=== PATIENT | male | born 1940 | race Caucasian/White ===

== ENCOUNTER 2017-07-23 14:37 | Emergency (ER) | payer MEDICARE ==
--- NOTE | 2017-07-23 15:55 | RAD ---
INDICATION: LEFT calf edema and pain. COMPARISON: No relevant prior exams available on the [facility] for comparison. TECHNIQUE: Harper scale, color Doppler, and spectral analysis of the deep veins of the LEFT lower extremity. Vessel compression, phasicity, and augmentation assessed. REPORT: The LEFT common femoral, great saphenous, profunda femoral, femoral, popliteal, peroneal, and posterior tibial veins are patent. Significant subcutaneous edema noted at the calf. No loculated fluid collection visualized. Patency of the RIGHT common femoral vein documented. IMPRESSION: No evidence for LEFT lower extremity deep venous thrombosis.
[2017-07-23 16:57] LABS: ABS Basophils 0 10^3/ul (0-0.2); ABS Eosinophils 0 10^3/ul (0-0.6); ABS Monocytes 0.4 10^3/ul (0-0.8); ABS Neutrophils 4.3 10^3/ul (1.5-7.7); ABS Nucleated RBC 0 10^3/ul; Eosinophil % 0.7 % (0-6); Hematocrit 45 % (42-52); Hemoglobin 15.2 g/dl (14.0-18.0); Lymphocyte % 17.3 % (25-47); Mean Corpuscular HGB Conc 34 g/dl (31-36); Mean Corpuscular Hemoglobin 32 pg (27-31); Mean Corpuscular Volume 95 fL (80-94); Mean Platelet Volume 8 um3 (7.4-10.4); Nucleated Red Blood Cells % 0; Platelet Count 175 10^3/ul (150-450); Red Blood Count 4.75 10^6/ul (4.0-5.4); Red Cell Distribution Width 15 % (10.5-15); White Blood Count 5.8 10^3/ul (3.5-10.8)
[2017-07-23 17:11] LABS: EGFR Non-African American 63.9 (>60)
[2017-07-23 17:24] VITALS: BP 130/64
--- NOTE | 2017-08-13 20:15 | ED ---
Annei Law Edward, scribed for Shashi Garrido MD on 07/23/17 at 1507 . Lower Extremity - HPI Summary HPI Summary: 76 y/o male presents to the ED c/o L lower leg swelling for a couple of weeks, still present. Pt was sent to the ED by his PCP for concerns of blood clots. Swelling becomes more pronounced at the espinal when the pt puts socks on. Denies injury, denies pain at the L leg. R leg normal. Denies fever, chils. No PMHx blood clots. Sx prostate removal. PMHx prostate CA. - History of Current Complaint Chief Complaint: EDExtremityLower Stated Complaint: SWELLING IN LT LEG Hx Obtained From: Patient Onset/Duration: Weeks Severity Currently: None Pain Intensity: 0 Timing: Constant Associated Signs And Symptoms: Positive: Swelling Aggravating Factor(s): Nothing Alleviating Factor(s): Nothing - Allergies/Home Medications Allergies/Adverse Reactions: Allergies Allergy/AdvReac Type Severity Reaction Status Date / Time No Known Allergies Allergy Verified 09/24/15 11:49 PMH/Surg Hx/FS Hx/Imm Hx Previously Healthy: No Endocrine/Hematology History: Denies: Hx Diabetes Cardiovascular History: Reports: Hx Hypercholesterolemia History: Reports: Other Problems/Disorders - hemorrhoids Infectious Disease History: No Infectious Disease History: Denies: Traveled Outside the [place] in Last 30 Days - Family History Known Family History: Positive: Hypertension, Other - CVA, lung cancer - Social History Alcohol Use: Occasionally Hx Substance Use: No Substance Use Type: Reports: None Hx Tobacco Use: No Smoking Status (MU): Never Smoked Tobacco Review of Systems Constitutional: Negative Eyes: Negative ENT: Negative Cardiovascular: Negative Respiratory: Negative Gastrointestinal: Negative Genitourinary: Negative Positive: Edema - L lower leg Skin: Negative Neurological: Negative Psychological: Normal All Other Systems Reviewed And Are Negative: Yes Physical Exam - Summary Physical Exam Summary: Appearance: Well-appearing, Well-nourished Skin: Warm, Dry, No rash Eyes: Normal, PERRL, EOMI, sclera anicteric ENT: Normal Neck: Supple, nontender Respiratory: Clear to auscultation Cardiovascular: S1, S2, no murmur, no rub, no gallop. Regularly irregular rhythm. Abdomen: Soft, nontender, no organomegaly Bowel sounds: Present Musculoskeletal: Normal, Strength/ROM Intact, pulses symmetrical. Swelling from knee on down on L side. No pain, no signs of cellulitis, no erythema. Good pulses Neurological: Normal, A&Ox3, cranial nerves II-XII WNL, follows commands, gait not tested, sensation intact to pin and light touch Psychiatric: affect normal, behavior appropriate, dressed appropriately, judgment intact Triage Information Reviewed: Yes Vital Signs On Initial Exam: Initial Vitals Temp Pulse Resp BP Pulse Ox 97.1 F 64 18 155/84 99 07/23/17 14:54 07/23/17 14:54 07/23/17 14:54 07/23/17 14:54 07/23/17 14:54 Vital Signs Reviewed: Yes Diagnostics - Vital Signs Vital Signs Temp Pulse Resp BP Pulse Ox 07/23/17 14:54 97.1 F 64 18 155/84 99 - Laboratory Result Diagrams: 07/23/17 16:45 07/23/17 16:45 Lab Statement: Any lab studies that have been ordered have been reviewed, and results considered in the medical decision making process. - Ultrasound No standard instances Ultrasound Interpretation: No Acute Changes - LESTER DOPPLER LLE - No evidence for LEFT lower extremity deep venous thrombosis. Ultrasound Interpretation Completed By: Radiologist - ED PHYSICIAN REVIEWS AND AGREES - EKG 1 EKG Interpretation: 15:45 - VENTRICULAR BIGEMINY @ 62 BPM. Lower Extremity Course/Dx - Course Assessment/Plan: LESTER DOPPLER LLE - No evidence for LEFT lower extremity deep venous thrombosis. EKG - 15:45 - VENTRICULAR BIGEMINY @ 62 BPM. Possible interruption of lymphatics secondary to prostate surgery. Labs normal. Pt will be d/c home. 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
== END 2017-07-23 17:47 | disposition home or self-care (01) ==
LOC: ED 14:37
DX: I89.0 Lymphedema, not elsewhere classified (principal); R60.0 Localized edema; Z85.46 Personal history of malignant neoplasm of prostate
CPT/HCPCS: 36415; 80053; 84153; 85025; 93005; 99282

== ENCOUNTER 2018-03-09 16:32 | Inpatient (IN) | payer MEDICARE, BC ==
[2018-03-09 17:31] LABS: ABS Basophils 0 10^3/ul (0-0.2); ABS Eosinophils 0 10^3/ul (0-0.6); ABS Lymphocytes 0.6 10^3/ul (1.0-4.8); ABS Monocytes 1.5 10^3/ul (0-0.8); ABS Neutrophils 8.8 10^3/ul (1.5-7.7); ABS Nucleated RBC 0 10^3/ul; Eosinophil % 0.1 % (0-6); Hematocrit 42 % (42-52); Hemoglobin 14.3 g/dl (14.0-18.0); Lymphocyte % 5.5 % (25-47); Mean Corpuscular HGB Conc 34 g/dl (31-36); Mean Corpuscular Hemoglobin 32 pg (27-31); Mean Corpuscular Volume 94 fL (80-94); Mean Platelet Volume 9.1 um3 (7.4-10.4); Nucleated Red Blood Cells % 0; Platelet Count 127 10^3/ul (150-450); Red Blood Count 4.48 10^6/ul (4.00-5.40); Red Cell Distribution Width 15 % (10.5-15)
[2018-03-09 17:49] LABS: EGFR Non-African American 61.8 (>60)
--- NOTE | 2018-03-09 18:08 | ED ---
HPI Chest Pain - HPI Summary HPI Summary: [facility]. Pt is a 77 y/o M c/o chest pain located on the R side onset 1 day ago. Per shank pinner, pain is rated a 5/10 at its worst and described as "chest wall" pain. Assoc Sx: Productive cough, Thick/green sputum, CP, chills, fever (100.2) Denies: N/V, SOB, Abd/back pain, POTTER. Pt was Dx with laryngitis ~1 week prior to todays visit. Pt's daughter notes that she just started noticing hand tremors 1 day ago. - History of Current Complaint Chief Complaint: EDChestWallPain Time Seen by Provider: 03/09/18 17:55 Hx Obtained From: Patient Onset/Duration: Started Days Ago, Atraumatic, Still Present Timing: Constant Initial Severity: Moderate Current Severity: Mild Pain Intensity: 3 Pain Scale Used: 0-10 Numeric Chest Pain Location: Upper Sternal - R-sided Chest Pain Radiates: No Character: Pressure/Squeezing Aggravating Factor(s): Nothing Alleviating Factor(s): Nothing Associated Signs and Symptoms: Positive: Chest Pain, Fever - 100.2, Chills, Productive Cough - thick/gree, Other: - Pos: Neg: back pain. Negative: Headaches, Shortness of Breath, Nausea, Abdominal Pain, Vomiting - Allergy/Home Medications Allergies/Adverse Reactions: Allergies Allergy/AdvReac Type Severity Reaction Status Date / Time No Known Allergies Allergy Verified 02/19/18 12:18 Home Medications: Home Medications NK [No Home Medications Reported] 03/09/18 [History Confirmed 03/09/18] PMH/Surg Hx/FS Hx/Imm Hx Endocrine/Hematology History: Denies: Hx Diabetes Cardiovascular History: Reports: Hx Hypercholesterolemia Denies: Hx Hypertension, Hx Pacemaker/ICD History: Reports: Other Problems/Disorders - hemorrhoids Denies: Hx Renal Disease Sensory History: Denies: Hx Hearing Aid Psychiatric History: Denies: Hx Panic Disorder - Cancer History Cancer Type, Location and Year: PROSTATE - Surgical History Surgery Procedure, Year, and Place: PROSTATECTOMY Infectious Disease History: No Infectious Disease History: Denies: Traveled Outside the [place] in Last 30 Days - Family History Known Family History: Positive: Hypertension, Other - CVA, lung cancer - Social History Lives: With Family Alcohol Use: Occasionally Hx Substance Use: No Substance Use Type: Reports: None Hx Tobacco Use: No Smoking Status (MU): Never Smoked Tobacco Review of Systems Positive: Fever - 100.2, Chills Positive: Chest Pain - R-sided Positive: Cough - productive. Negative: Shortness Of Breath Negative: Abdominal Pain, Vomiting, Nausea All Other Systems Reviewed And Are Negative: Yes Physical Exam - Summary Physical Exam Summary: VITAL SIGNS: Reviewed. GENERAL: Patient is a well-developed and nourished male who is lying comfortable in the stretcher. Patient is not in any acute respiratory distress. HEAD AND FACE: No signs of trauma. No ecchymosis, hematomas or skull depressions. No sinus tenderness. EYES: PERRLA, EOMI x 2, No injected conjunctiva, no nystagmus. EARS: Hearing grossly intact. Ear canals and tympanic membranes are within normal limits. MOUTH: Oropharynx within normal limits. NECK: Supple, trachea is midline, no adenopathy, no JVD, no carotid bruit, no c- spine tenderness, neck with full ROM. CHEST: Symmetric, no tenderness at palpation LUNGS: Clear to auscultation bilaterally. No wheezing. Crackles (+). CVS: Regular rate and rhythm, S1 and S2 present, no murmurs or gallops appreciated. ABDOMEN: Soft, non-tender. No signs of distention. No rebound no guarding, and no masses palpated. Bowel sounds are normal. EXTREMITIES: FROM in all major joints, no edema, no cyanosis or clubbing. NEURO: Alert and oriented x 3. No acute neurological deficits. Speech is normal and follows commands. SKIN: Dry and warm. Pt feels warm. Triage Information Reviewed: Yes Vital Signs On Initial Exam: Initial Vitals Temp Pulse Resp BP Pulse Ox 99.8 F 81 16 134/58 100 03/09/18 16:33 03/09/18 16:33 03/09/18 16:33 03/09/18 16:33 03/09/18 16:33 Vital Signs Reviewed: Yes Diagnostics - Vital Signs Vital Signs Temp Pulse Resp BP Pulse Ox 03/09/18 18:05 100.2 F 03/09/18 17:54 98.9 F 74 16 125/54 100 03/09/18 16:33 99.8 F 81 16 134/58 100 - Laboratory Lab Results: Lab Results 03/09/18 03/09/18 03/09/18 Range/Units 17:15 17:16 17:16 WBC 11.0 H (3.5-10.8) 10^3/ul RBC 4.48 (4.00-5.40) 10^6/ul Hgb 14.3 (14.0-18.0) g/dl Hct 42 (42-52) % MCV 94 (80-94) fL MCH 32 H (27-31) pg MCHC 34 (31-36) g/dl RDW 15 (10.5-15) % Plt Count 127 L (150-450) 10^3/ul MPV 9.1 (7.4-10.4) um3 Neut % (Auto) 80.4 (38-83) % Lymph % (Auto) 5.5 L (25-47) % [place] % (Auto) 13.8 H (0-7) % Eos % (Auto) 0.1 (0-6) % Baso % (Auto) 0.2 (0-2) % Absolute Neuts (auto) 8.8 H (1.5-7.7) 10^3/ul Absolute Lymphs (auto) 0.6 L (1.0-4.8) 10^3/ul Absolute Monos (auto) 1.5 H (0-0.8) 10^3/ul Absolute Eos (auto) 0 (0-0.6) 10^3/ul Absolute Basos (auto) 0 (0-0.2) 10^3/ul Absolute Nucleated RBC 0 10^3/ul Nucleated RBC % 0 Sodium 133 L (135-145) mmol/L Potassium 4.1 (3.5-5.0) mmol/L Chloride 99 L (101-111) mmol/L Carbon Dioxide 27 (22-32) mmol/L Anion Gap 7 (2-11) mmol/L BUN 17 (6-24) mg/dL Creatinine 1.15 (0.67-1.17) mg/dL Est GFR ( Amer) 74.8 (>60) Est GFR (Non-Af Amer) 61.8 (>60) BUN/Creatinine Ratio 14.8 (8-20) Glucose 112 H (70-100) mg/dL Lactic Acid 1.1 (0.5-2.0) mmol/L Calcium 9.3 (8.6-10.3) mg/dL Total Bilirubin 3.20 H (0.2-1.0) mg/dL AST 19 (13-39) U/L ALT 14 (7-52) U/L Alkaline Phosphatase 57 (34-104) U/L Troponin I 0.13 H* (<0.04) ng/mL Total Protein 6.9 (6.4-8.9) g/dL Albumin 4.0 (3.2-5.2) g/dL Globulin 2.9 (2-4) g/dL Albumin/Globulin Ratio 1.4 (1-3) Result Diagrams: 03/09/18 17:16 03/09/18 17:16 Lab Statement: Any lab studies that have been ordered have been reviewed, and results considered in the medical decision making process. - Radiology CXR Xray Interpretation: Positive (See Comments) - IMPRESSION: POSSIBLE INFILTRATE OVERLYING THE LATERAL ASPECT OF THE RIGHT MIDDLE LOBE. A FOLLOW-UP CHEST X-RAY AFTER AN APPROPRIATE COURSE OF THERAPY IS ADVISED TO ASCERTAIN RESOLUTION. Radiology Interpretation Completed By: Radiologist - Provider has reviewed report. - EKG 1637 Cardiac Rate: NL - 77 bpm EKG Interpretation: ST depressions in 2,3 Chest Pain Course/Dx - Course Assessment/Plan: Pt is a 77 y/o M c/o chest pain located on the R side onset 1 day ago. Per shank pinner, pain is rated a 5/10 at its worst and described as "chest wall" pain. Assoc Sx: Productive cough, Thick/green sputum, CP, chills, fever (100.2) Denies: N/V, SOB, Abd/back pain, POTTER. Pt was Dx with laryngitis ~1 week prior to today's visit. Pt's daughter notes that she just started noticing hand tremors 1 day ago. Blood test results without any significant abnormality except for what was a count of 11, platelet count of 127, sodium 133, chloride 99, glucose 112, troponin of 0.13. Impression: Possible infiltratable in the lateral aspect of the right middle of follow-up chest x-ray after appropriate course of therapy. The patient was given aspirin, and metoprolol for the increased troponin. I held the beta russel since the patient is a is not having any chest pain. The patient also was given Levaquin by the hospitalist for pneumonia. At this point I discussed my physical exam, findings and test results with Dr. Carmelo Kirkpatrick the patient for admission. The patients hemogram medically stable alert and oriented 3. - Chest Pain Differential Diagnosis/HQI/PQRI: Acute GA, ACS, Angina, CHF, Chest Wall, GI Disease, Lower Respiratory Infection - Diagnoses Provider Diagnoses: Pneumonia, Elevated troponin - Critical Care Time Critical Care Time: 30-74 min Discharge - Sign-Out/Discharge Documenting (check all that apply): Patient Departure - Discharge Plan Condition: Stable Disposition: ADMITTED TO [facility] - Billing Disposition and Condition Condition: STABLE Disposition: Admitted to [facility]
[2018-03-09] MEDS ORDERED: Metoprolol Tartrate TAB* 25 MG PO ONE (18:25)
[2018-03-09] MEDS ORDERED: Aspirin 81 mg CHEW TAB* 81 MG TAB.CHEW PO ONE (18:25)
--- NOTE | 2018-03-09 19:16 | RAD ---
INDICATION: Shortness of breath. COMPARISON: Chest x-ray dated November 16, 2004 TECHNIQUE: PA and lateral views of the chest were obtained. FINDINGS: The heart and mediastinum are normal in size and contour. Overlying the lateral mid-level right lung there is patchy density that was not seen on the previous chest x-ray. Elsewhere the lungs are adequately clear. Visualized bones are normal for the patient's age. There is no radiographic evidence of free air beneath the diaphragm IMPRESSION: POSSIBLE INFILTRATE OVERLYING THE LATERAL ASPECT OF THE RIGHT MIDDLE LOBE. A FOLLOW-UP CHEST X-RAY AFTER AN APPROPRIATE COURSE OF THERAPY IS ADVISED TO ASCERTAIN RESOLUTION.
[2018-03-09] MEDS ORDERED: Docusate CAP* 100 MG PO PRN (19:55)
[2018-03-09] MEDS ORDERED: Al Hydrox/Mg Hydrox/Simet LIQ* 30 ML UDC PO PRN (19:55)
[2018-03-09] MEDS ORDERED: Ondansetron INJ* 2 MG/ML VIAL IV PRN (19:55)
[2018-03-09] MEDS ORDERED: Acetaminophen TAB* 325 MG PO PRN (19:55)
[2018-03-09] MEDS ORDERED: Senna TAB PO PRN (19:55)
[2018-03-09] MEDS ORDERED: Albuterol 2.5 MG/3 ML NEB.SOL* (0.083%) INH PRN (19:55)
[2018-03-09] MEDS ORDERED: Levofloxacin 750 MG IVPREMIX(* 750 MG/150 ML BAG IVPB ONE (20:00)
[2018-03-09] MEDS: Heparin VIAL(*) 5000 UNITS/ML VIAL (FIVE THOUSAND) SUBCUT SCH (22:56)
[2018-03-09] MEDS: NS 0.9% 1000 ML* 1,000 ML IV SCH (22:58)
--- NOTE | 2018-03-09 23:07 | HP ---
CC: [facility]. * HISTORY AND PHYSICAL: DATE OF ADMISSION: 03/09/18. TIME OF EVALUATION: 1999 CHIEF COMPLAINT: Chest pain. HISTORY OF PRESENT ILLNESS: This is a 77-year-old male with a past medical history of prostate cancer, who presented to the emergency room with chest pain. The patient states about a week ago, he developed laryngitis where he lost his voice and then he developed significant congestion, productive cough. Three to four days ago, he developed right-sided pain and substernal chest pressure worse with palpation and deep breath. There was concern about swelling in his legs. He called [facility] where he gets followed there for his prostate cancer. They were concerned about DVT and recommended he get a Doppler of his lower extremities, which he did earlier today that was negative and because of the ongoing chest pain they recommended going to the emergency room for further evaluation. The patient denies any nausea, vomiting, diarrhea. No abdominal pain. No urinary symptoms. His appetite has been okay. No fevers. He has had chills today. He states his chest pain, pleuritic pain have improved. He is currently pain free. He last went to see his primary back in July, but saw the midlevel who has since gone at [facility]. States he has had pneumonia in the past that responded well to Levaquin. Otherwise review of systems negative. In the emergency room, the patient had labs, imaging. The patient was given 324 mg of aspirin, metoprolol 25 mg and referred to the hospitalist service for further evaluation. PAST MEDICAL HISTORY: History of prostate cancer, status post TURP, followed at [facility]. MEDICATIONS: None. ALLERGIES: No known drug allergies. FAMILY HISTORY: Mother at age 85 of lung cancer, father at age of 72 from cancer. SOCIAL HISTORY: The patient lives at home with his , who is his healthcare proxy. His daughter, Sruthi, is a secondary proxy. He is independent of his ADLs. Per daughter, he is very active. No history of smoking. Occasional alcohol use. No illicit drug use. Code status is full code. REVIEW OF SYSTEMS: A 14-point review of systems as mentioned in the HPI. Otherwise, negative. PHYSICAL EXAMINATION GENERAL: In no acute distress, resting comfortably with his daughter at the bedside. VITAL SIGNS: T-max 100.2, pulse rate 90, respiratory rate 16, oxygen saturation 98% on room air, and blood pressure 139/62. HEENT: Head: Normocephalic. Pupils are equal and reactive. Oropharynx: Some mild erythema in the posterior oropharynx. No exudate. NECK: Supple. No lymphadenopathy. No nuchal rigidity. RESPIRATORY: Diminished breath sounds. Rhonchi present at the right middle lobe. No increased work of breathing. No tachypnea. CARDIAC: Regular rate and rhythm. Soft systolic murmur heard throughout. ABDOMEN: Soft, nontender, nondistended. EXTREMITIES: Trace pretibial edema. NEUROLOGIC: Alert and oriented x3. No gross focal neurological deficits. LABORATORY DATA: White count 11, hemoglobin 14.3, hematocrit 42, platelets 127. Sodium 133, potassium 4.1, chloride 99, bicarbonate 27, BUN 17, creatinine 1.14, glucose 112. Total bilirubin 3.12, troponin 0.13. Radiographic data: Chest x-ray shows possible infiltrate overlying the lateral aspect of the right middle lobe. EKG shows sinus rhythm. There is no significant ST changes. ASSESSMENT: This is a 77-year-old male with an unremarkable past medical history who presents to the emergency room with pleuritic pain, chest pain, found to have an elevated troponin. 1. Chest pain. Assessment: I suspect the patient's presentation is secondary to community acquired pneumonia and resulting in demand ischemia with a bump in his troponin. With EKGs unremarkable, he is chest pain-free at this time. He has no respiratory compromise at this time either. Plan: We will follow up on blood cultures, obtain a sputum culture. We will start him on Levaquin and IV fluids. Continue him on a baby aspirin. We will do a trial of albuterol nebulizer. Continue to trend his troponin. We obtained an echocardiogram in the morning. I discussed that this is less likely an NSTEMI and more likely stress from his infection, but that he should get a stress test at some point either while he is an inpatient or as an outpatient. 2. FEN. We will place the patient on heart healthy diet. 3. DVT prophylaxis: The patient scores moderate risk. We will place him on heparin subcutaneous t.i.d. 4. Code status: Full code. PATIENT TIME: Greater than 45 minutes was spent doing the history and physical , more than half the time was spent in direct patient contact and critical care time. [id number]/[facility] #: [id number] EDGARDO
[2018-03-10] MEDS: Heparin VIAL(*) 5000 UNITS/ML VIAL (FIVE THOUSAND) SUBCUT SCH ×2 (04:59→15:52)
[2018-03-10 07:15] LABS: ABS Basophils 0 10^3/ul (0-0.2); ABS Eosinophils 0 10^3/ul (0-0.6); ABS Lymphocytes 0.7 10^3/ul (1.0-4.8); ABS Monocytes 1.5 10^3/ul (0-0.8); ABS Neutrophils 6.8 10^3/ul (1.5-7.7); ABS Nucleated RBC 0 10^3/ul; Eosinophil % 0.1 % (0-6); Hematocrit 35 % (42-52); Lymphocyte % 7.7 % (25-47); Mean Corpuscular HGB Conc 34 g/dl (31-36); Mean Corpuscular Hemoglobin 32 pg (27-31); Mean Corpuscular Volume 93 fL (80-94); Mean Platelet Volume 9.4 um3 (7.4-10.4); Nucleated Red Blood Cells % 0; Platelet Count 111 10^3/ul (150-450); Red Blood Count 3.77 10^6/ul (4.00-5.40); Red Cell Distribution Width 15 % (10.5-15)
[2018-03-10 07:59] LABS: EGFR Non-African American 63.1 (>60)
[2018-03-10] MEDS: NS 0.9% 1000 ML* 1,000 ML IV SCH (08:39)
[2018-03-10] MEDS: Aspirin 81 mg CHEW TAB* 81 MG TAB.CHEW PO SCH (08:44)
--- NOTE | 2018-03-10 10:01 | ECHO ---
Patient: ISAURA SORIA [facility] Rec#: [id number] : 1940 Date: 03/10/2018 Age: 77y Height: 180 cm / 70.9 in Weight: 68 kg / 149.9 lbs Sex: M BSA: 1.86 Room#: [facility] Admit Date#: 03/09/2018 Type: Inpatient Referring: Olga Lidia Reilly Reading: Estiven Marr DO Advisor [facility] [employer] Founder: Ketty Ziegler,RDCS,RDMS Transthoracic Echocardiogram Indication: CP, ABN EKG BP: 125/53 HR: 73 Rhythm: NSR Findings History: HLD, murmur Technical Comments: The study quality is good. Left Ventricle: The left ventricular chamber size is normal. There is no left ventricular hypertrophy. There is normal left ventricular systolic function. The estimated ejection fraction is 60-65%. There is septal flattening of the interventricular septum consistent with right ventricular volume or pressure overload. There is no consistent Doppler evidence of clinically significant diastolic dysfunction. Left Atrium: The left atrial chamber size is normal. Right Ventricle: The right ventricle is mildly dilated. The right ventricular global systolic function is mildly reduced. Right Atrium: The right atrial cavity size is normal. Aortic Valve: The aortic valve is trileaflet. The aortic valve leaflets are mildly thickened. There is aortic annular calcification. There is no evidence of aortic regurgitation. There is no evidence of aortic stenosis. Mitral Valve: The mitral valve leaflets are mildly thickened. There is a trace of mitral regurgitation. There is no evidence of mitral stenosis. Tricuspid Valve: The tricuspid valve leaflets are normal. There is mild tricuspid regurgitation. There is evidence of mild pulmonary hypertension. Pulmonic Valve: The pulmonic valve appears normal. There is a trace pulmonic regurgitation. Pericardium: There is no significant pericardial effusion. Aorta: The aortic root appears normal. The aortic arch is not well visualized. Pulmonary Artery: The main pulmonary artery is not well visualized. Venous: The inferior vena cava is dilated. There is less than 50% respiratory change in the inferior vena cava dimension. Conclusions The left ventricular chamber size is normal. There is no left ventricular hypertrophy. There is normal left ventricular systolic function. The estimated ejection fraction is 60-65%. There is very minimal septal flattening/"bounce" of the interventricular septum mostly likely as a result of right ventricular volume and/or pressure overload. The left atrial chamber size is normal. The right ventricle is mildly dilated. The right ventricular global systolic function is mildly reduced. There is mild tricuspid regurgitation. There is evidence of mild pulmonary hypertension. None prior for comparison at time of interpretation. Measurements Name Value Normal Range RVIDd (AP) 2D 2.5 cm (0.9 - 2.6) RVDdMajor (2D) 2.7 cm (2.2 - 4.4) RAd ISD 4CH 4.5 cm (3.4 - 4.9) RA (A4C)W 4.6 cm (2.9 - 4.6) IVSd (2D) 1 cm (0.6 - 1) LVPWd (2D) 1 cm (0.6 - 1) LVIDd (2D) 5.1 cm (3.6 - 5.4) LVIDs (2D) 3 cm - LV FS (2D) 42 % (25 - 45) Aortic Annulus 2.1 cm (1.4 - 2.6) Ao root diameter (2D) 3 cm (2.1 - 3.5) Ascending Ao 2.9 cm (2.1 - 3.4) LA dimension (AP) 2D 3.8 cm (2.3 - 3.8) LAd ISD 4CH 4.8 cm (2.9 - 5.3) LA ISD 4CH W 3.8 cm (2.5 - 4.5) Name Value Normal Range MV E-wave Vmax 0.9 m/sec - MV deceleration time 213 msec - MV A-wave Vmax 1.2 m/sec - MV E:A ratio 0.8 ratio - LV septal e' Vmax 0.08 m/sec - LV lateral e' Vmax 0.08 m/sec - LV E:e' septal ratio 11 ratio - LV E:e' lateral ratio 11 ratio - Name Value Normal Range AV Vmax 1.3 m/sec - AV VTI 27 cm - AV peak gradient 7 mmHg - AV mean gradient 4 mmHg - LVOT diameter 2 cm - LVOT Vmax 1 m/sec - LVOT VTI 21 cm - LVOT peak gradient 4 mmHg - LVOT mean gradient 2 mmHg - LORETA (continuity Vmax) 2.5 cm2 - LORETA (continuity VTI) 2.4 cm2 - MATT Vmax 0.9 m/sec - Name Value Normal Range MV Vmax 1.1 m/sec - MV VTI 35 cm - MV peak gradient 5 mmHg - MV mean gradient 2 mmHg - MV PHT 80 msec - MVA (PHT) 2.8 cm2 - MVA (continuity VTI) 1.9 cm2 - Name Value Normal Range TR Vmax 3.1 m/sec - TR peak gradient 38 mmHg - RAP 3 mmHg - RVSP 41 mmHg - IVC diameter 2.3 cm - Name Value Normal Range PV Vmax 0.8 m/sec - PV peak gradient 2.6 mmHg -
[2018-03-10] MEDS: cefTRIAXone(*) 1 GM in NS 0.9% 50 ML* 50 ML IVPB SCH (16:30)
[2018-03-10] MEDS: DOXYcycline IV* 100 MG in NS 0.9% 250 ML* 250 ML IVPB SCH (17:19)
[2018-03-10] MEDS ORDERED: Levofloxacin 750 MG IVPREMIX(* 750 MG/150 ML BAG IVPB SCH (20:00)
--- NOTE | 2018-03-10 20:06 | PN ---
Subjective Date of Service: 03/10/18 Interval History: Patient feeling much improved. Decreased SOB with no hypoxia and ability to ambulate around unit multiple times. Denies CP, SOB, N/V, abdominal pain, diarrhea, dysuria, F/C, dizziness, or other pain. Had numerous questions and concerns which were answered to his satisfaction. Family History: Unchanged from Admission Social History: Unchanged from Admission Past Medical History: Unchanged from Admission Objective Active Medications: Acetaminophen (Tylenol Tab*) 650 mg PO Q4H PRN PRN Reason: FEVER/PAIN Al Hydrox/Mg Hydrox/Simethicone (Maalox Plus*) 30 ml PO Q6H PRN PRN Reason: INDIGESTION Albuterol (Ventolin 2.5 Mg/3 Ml Neb.Vy*) 2.5 mg INH [id number] AWAKE PRN PRN Reason: sob/wheezing Aspirin (Aspirin 81 Mg Chew Tab*) 81 mg PO DAILY [facility] Last Admin: 03/10/18 08:44 Dose: 81 mg Docusate Sodium (Colace Cap*) 100 mg PO BID PRN PRN Reason: CONSTIPATION Doxycycline Hyclate 100 mg/ (Sodium Chloride) 250 mls @ 250 mls/hr IVPB Q12H [facility] Last Admin: 03/10/18 17:19 Dose: 250 mls/hr Ceftriaxone Sodium 1 gm/ (Sodium Chloride) 50 mls @ 200 mls/hr IVPB Q24H [facility] Last Admin: 03/10/18 16:30 Dose: 200 mls/hr Ondansetron HCl (Zofran Inj*) 4 mg IV Q4H PRN PRN Reason: NAUSEA/VOMITING Senna (Senokot Tab*) 1 tab PO BID PRN PRN Reason: CONSTIPATION Vital Signs - 8 hr 03/10/18 03/10/18 12:35 16:02 Temperature 99.2 F 97.8 F Pulse Rate 68 73 Respiratory 18 20 Rate Blood Pressure 129/62 119/65 (mmHg) O2 Sat by Pulse 100 98 Oximetry Oxygen Devices in Use Now: None Appearance: Patient is a 77yo male who appears stated age and is sitting in the bed in NAD. Eyes: No Scleral Icterus, PERRLA Ears/Nose/Mouth/Throat: NL Teeth, Lips, Gums, Clear Oropharnyx, Mucous Membranes Moist Neck: NL Appearance and Movements; NL JVP, Trachea Midline, No Thyroid Enlargement, Masses Respiratory: Symmetrical Chest Expansion and Respiratory Effort, Clear to Auscultation Cardiovascular: NL Sounds; No Murmurs; No JVD, RRR, No Edema Abdominal: NL Sounds; No Tenderness; No Distention, No Hepatosplenomegaly Lymphatic: No Cervical Adenopathy Extremities: No Edema, No Clubbing, Cyanosis Skin: No Rash or Ulcers, No Nodules or Sclerosis Neurological: Alert and Oriented x 3, NL Sensation, NL Muscle Strength and Tone , - - CN II-XII intact Result Diagrams: 03/10/18 06:50 03/10/18 06:50 Additional Lab and Data: Lab Results 03/09/18 03/09/18 03/09/18 Range/Units 17:15 17:16 17:16 WBC 11.0 H (3.5-10.8) 10^3/ul RBC 4.48 (4.00-5.40) 10^6/ul Hgb 14.3 (14.0-18.0) g/dl Hct 42 (42-52) % MCV 94 (80-94) fL MCH 32 H (27-31) pg MCHC 34 (31-36) g/dl RDW 15 (10.5-15) % Plt Count 127 L (150-450) 10^3/ul MPV 9.1 (7.4-10.4) um3 Neut % (Auto) 80.4 (38-83) % Lymph % (Auto) 5.5 L (25-47) % Gilliam % (Auto) 13.8 H (0-7) % Eos % (Auto) 0.1 (0-6) % Baso % (Auto) 0.2 (0-2) % Absolute Neuts (auto) 8.8 H (1.5-7.7) 10^3/ul Absolute Lymphs (auto) 0.6 L (1.0-4.8) 10^3/ul Absolute Monos (auto) 1.5 H (0-0.8) 10^3/ul Absolute Eos (auto) 0 (0-0.6) 10^3/ul Absolute Basos (auto) 0 (0-0.2) 10^3/ul Absolute Nucleated RBC 0 10^3/ul Nucleated RBC % 0 Sodium 133 L (135-145) mmol/L Potassium 4.1 (3.5-5.0) mmol/L Chloride 99 L (101-111) mmol/L Carbon Dioxide 27 (22-32) mmol/L Anion Gap 7 (2-11) mmol/L BUN 17 (6-24) mg/dL Creatinine 1.15 (0.67-1.17) mg/dL Est GFR ( Amer) 74.8 (>60) Est GFR (Non-Af Amer) 61.8 (>60) BUN/Creatinine Ratio 14.8 (8-20) Glucose 112 H (70-100) mg/dL Lactic Acid 1.1 (0.5-2.0) mmol/L Calcium 9.3 (8.6-10.3) mg/dL Total Bilirubin 3.20 H (0.2-1.0) mg/dL AST 19 (13-39) U/L ALT 14 (7-52) U/L Alkaline Phosphatase 57 (34-104) U/L Troponin I 0.13 H* (<0.04) ng/mL Total Protein 6.9 (6.4-8.9) g/dL Albumin 4.0 (3.2-5.2) g/dL Globulin 2.9 (2-4) g/dL Albumin/Globulin Ratio 1.4 (1-3) Microbiology and Other Data: Microbiology 03/09/18 17:16 Aerobic Blood Culture - Preliminary Blood Venous No Growth Day 1 Anaerobic Blood Culture - Preliminary No Growth Day 1 03/09/18 17:16 Aerobic Blood Culture - Preliminary Blood Venous No Growth Day 1 Anaerobic Blood Culture - Preliminary No Growth Day 1 Assess/Plan/Problems-Billing Assessment: Patient is a 77yo male with a PMH for Prostate cancer S/P radical prostatectomy who has CAP and is improving on Antibiotics. - Patient Problems (1) CAP (community acquired pneumonia) Current Visit: Yes Status: Acute Code(s): J18.9 - PNEUMONIA, UNSPECIFIED ORGANISM SNOMED Code(s): 696789472 Comment: Has SOB with RML infiltrate, WBC count elevation and mildly increased temps. Treated with Levaquin and then switched to Ceftriaxone/Doxycycline. Improving greatly. Likely cause of mild RV overload on echo. Blood cultures negative to this point. (2) Demand ischemia Current Visit: Yes Status: Acute Code(s): I24.8 - OTHER FORMS OF ACUTE ISCHEMIC HEART DISEASE SNOMED Code(s): 881919144 Comment: Troponin mildly elevated to .13 and trended down. No more CP. CP when present was pleuritic. Would benefit from outpatient stress test after acute phase of illness. (3) History of prostate cancer Current Visit: Yes Status: Acute Code(s): Z85.46 - PERSONAL HISTORY OF MALIGNANT NEOPLASM OF PROSTATE SNOMED Code(s): 224040297 Comment: Low stage. Status post radical prostatectomy. (4) DVT prophylaxis Current Visit: Yes Status: Acute Code(s): KXR6352 - SNOMED Code(s): 297634994 Comment: Heparin SubQ. Will D/C tomorrow due to family concerns. (5) Full code status Current Visit: Yes Status: Acute Code(s): Z78.9 - OTHER SPECIFIED HEALTH STATUS SNOMED Code(s): 765879347 Status and Disposition: Inpatient. Hopeful discharge tomorrow/
[2018-03-11] MEDS: DOXYcycline IV* 100 MG in NS 0.9% 250 ML* 250 ML IVPB SCH ×2 (04:25→19:12)
[2018-03-11 06:54] LABS: ABS Basophils 0 10^3/ul (0-0.2); ABS Eosinophils 0.1 10^3/ul (0-0.6); ABS Lymphocytes 0.6 10^3/ul (1.0-4.8); ABS Monocytes 1.2 10^3/ul (0-0.8); ABS Neutrophils 6.1 10^3/ul (1.5-7.7); ABS Nucleated RBC 0 10^3/ul; Eosinophil % 1.1 % (0-6); Hematocrit 36 % (42-52); Hemoglobin 12.3 g/dl (14.0-18.0); Lymphocyte % 7.6 % (25-47); Mean Corpuscular HGB Conc 35 g/dl (31-36); Mean Corpuscular Hemoglobin 32 pg (27-31); Mean Corpuscular Volume 93 fL (80-94); Mean Platelet Volume 9.4 um3 (7.4-10.4); Nucleated Red Blood Cells % 0.1; Platelet Count 126 10^3/ul (150-450); Red Blood Count 3.81 10^6/ul (4.00-5.40); Red Cell Distribution Width 15 % (10.5-15)
[2018-03-11 07:11] LABS: EGFR Non-African American 77.1 (>60)
[2018-03-11] MEDS ORDERED: Magnesium Sulfate IV* 3 GM in NS 0.9% 100 ML* 100 ML IVPB ONE (07:15)
[2018-03-11] MEDS: Aspirin 81 mg CHEW TAB* 81 MG TAB.CHEW PO SCH (08:31)
[2018-03-11 11:58] VITALS: BP 126/63
[2018-03-11] MEDS: cefTRIAXone(*) 1 GM in NS 0.9% 50 ML* 50 ML IVPB SCH (19:12)
--- NOTE | 2018-03-13 01:23 | DS ---
CC: Cee Golden; Dr. Breanna Wright; Dr. Tim Escud[facility] * DISCHARGE SUMMARY: DATE OF ADMISSION: 03/09/18. DATE OF DISCHARGE: 03/11/18. PRIMARY CARE PROVIDER: Cee Golden. MY ATTENDING WHILE IN THE HOSPITAL: Dr. Breanna Wright.* (DICTATED BY MARKELL BELLE) PRIMARY DISCHARGE DIAGNOSES: 1. Community-acquired pneumonia, non-ST segment elevation. 2. Elevated troponin, likely due to demand ischemia. SECONDARY DISCHARGE DIAGNOSIS: History of prostate cancer, status post radical prostatectomy. STUDIES DONE WHILE IN THE HOSPITAL: Chest x-ray from 03/09/18, read as possible infiltrate overlying the lateral aspect of the right middle lobe. Followup chest x-ray after an appropriate course of therapy is advised to ascertain resolution. Electrocardiogram from 03/09/18, shows normal sinus rhythm, T-wave inversion in lead 3, minimal ST depression in II and aVF, rate of 77, QTC of 418, repolarization in V2 and V3, normal axis, no other abnormalities consistent with previous exam from 2017. Repeat EKG shows no significant changes, PVCs, rate of 68, QTC of 441. Transthoracic echocardiogram from 03/09/18 read as left ventricular chamber size normal. Normal left ventricular hypertrophy, normal left ventricular systolic function, estimated ejection fraction was 60 to 65%, very minimal septal flattening, bounce of the interventricular septum most likely as a result of left ventricular volume as a pressure overload. Left ventricular chamber size normal. Right ventricle is mildly dilated. Right global ventricular systolic function is mildly reduced. Left ventricular chamber size normal. Right ventricle is mildly dilated. Right global ventricular systolic function is mildly reduced. MEDICATIONS AT DISCHARGE: 1. Tylenol 650 mg p.o. daily. 2. Albuterol inhaler 1 puff inhalation q.6 hours as needed. 3. Aspirin 81 mg p.o. daily. 4. Cefpodoxime 200 mg p.o. q.12 hours x24. 5. Doxycycline 100 mg p.o. b.i.d. x10. 6. Magnesium oxide 400 mg p.o. daily x30. HOSPITAL COURSE: This is a brief summary of the patient's presentation. For more details, please see history and physical from Olga Lidia Reilly M.D., on . In brief, the patient is a 77-year-old male with past medical history significant for the above, who presented to the emergency department with chest pain over approximately 1 week. The patient states that he on admission developed significant chest congestion and a productive cough and then subsequently developed right sided chest pain, substernal chest pressure, which is reproducible on palpation and deep breathing. The patient had swelling in his left leg. The patient had negative DVT study before coming to the emergency department. The patient had chills on the day of admission. The patient's chest pain improved and he was chest pain free. The patient has a previous history of pneumonia, which was treated with Levaquin. The patient was admitted to the hospital, started on treatment for community-acquired pneumonia. The patient had initially troponin elevation of 0.13, which was turned down to 0.12 and 0.9. Other laboratory data of note, bilirubin elevated at 3.2 with a predominance of indirect bilirubin. The patient's magnesium was initially 1.8 and then decreased to 1.6. The patient had initially white blood cell count of 11, was turned down to 8.0. The patient has initially hemoglobin of 14.3 and decreased to 12.3 after fluid resuscitation. The patient had a procalcitonin of 0.8, LDL cholesterol of 52, HDL cholesterol of 38. The patient improved significantly with no recurrent chest pain, improved shortness of breath, ability to ambulate on the unit with minimal shortness of breath. On his first stay while in the hospital, the patient had a transthoracic echocardiogram read as above. The patient had electrocardiogram also read as above showing no significant changes from his previous exam. The patient was given magnesium for his hypomagnesemia. The patient had initially a slight temperature elevations to maximum of 100.2. The patient had no tachycardia. No hypertension. No hypoxia. The patient was continued on ceftriaxone and doxycycline. The patient initially received a dose of Levaquin, but this was discontinued. The patient was stable on 03/12/18, not though close to his baseline, had no recurrence in his chest pain. No increased shortness of breath and was amenable and stable for discharge. PHYSICAL EXAMINATION: General: The patient is a 77-year-old male who appears stated age, sitting comfortably in bed in no acute distress. Vital Signs: At the time of evaluation, temperature 98.5, pulse rate 62, respiratory rate 16, oxygen saturation 96% on room air, blood pressure 126/63. HEENT: Head normocephalic and atraumatic. Sclerae anicteric. No conjunctival injection. Nasal mucosa moist. Oral mucosa moist. No pharyngeal erythema, discharge or exudate. Neck: Supple and nontender. No lymphadenopathy. No carotid bruits auscultated. No JVD. Cardiac: Regular, rate, and rhythm. No clicks, murmurs, gallops or rubs. Pulses are 2+ in the bilateral dorsalis pedis, posterior tibialis, and radial areas. 1+ left lower extremity edema consistent per previous exam. Respiratory: Clear to auscultation bilaterally. No wheezes, rales or rhonchi. Good air exchange bilaterally. Abdomen: Soft, nontender, and nondistended. Bowel sounds present, normoactive in all 4 quadrants. No hepatosplenomegaly. No abdominal bruits auscultated. No hepatojugular reflux. Genitourinary: No suprapubic or CVA tenderness. Skin: Clean, dry, and intact. No rash. Neuro: Cranial nerves II through XII are intact. No focal deficits. Alert and oriented x3. Psychiatric: Pleasant and cooperative. LABORATORY DATA ON THE DAY OF DISCHARGE: White blood cell count of 8.0, hemoglobin 12.3, hematocrit 36, platelet count 126. Sodium 138, potassium 3.9, chloride 109, carbon-dioxide 23, anion gap 6, BUN 18, creatinine 0.95, glucose 102, calcium 8.3, magnesium 1.6. DISCHARGE PLAN: The patient will be discharged to home. The patient should follow up with his primary care provider in 1 week to ensure resolution of his symptoms of pneumonia. The patient should have a repeat chest x-ray if deemed appropriate by his primary care provider. The patient will be continued on cefpodoxime and doxycycline as above. Initially consideration given to an outpatient stress test given the patient's elevated troponin. The patient had a normal hemoglobin A1c, lipid panel while in the hospital. The patient's echocardiogram had no focal wall motion abnormalities. The patient's mild evidence of pulmonary hypertension is likely due to pneumonia; however, this should be followed for signs of ongoing pulmonary hypertension. The patient should have a heart-healthy diet, decaf okay. The patient should engage in activity as tolerated. The patient should return to the hospital for alarming symptoms such as recurrent chest pain, severe shortness of breath, syncope, severe palpitations or other alarming symptoms. TIME SPENT: Approximately 75 minutes was spent on this discharge 45 of which was spent [id number] with the patient obtaining physical and discussing treatment plan. MARKELL BELLE [id number]/[facility] #: [id number] [place]
== END 2018-03-11 19:40 | disposition home or self-care (01) | DRG 194 ==
LOC: ED 16:32 → MEDTELE 19:55
PROVIDERS: ADMIT Pediatrics; ATTEND Internal Medicine
DX: J18.9 Pneumonia, unspecified organism (principal); I24.8 Other forms of acute ischemic heart disease; I51.7 Cardiomegaly; I27.20 Pulmonary hypertension, unspecified; E78.00 Pure hypercholesterolemia, unspecified; K64.9 Unspecified hemorrhoids; E83.42 Hypomagnesemia; Z85.46 Personal history of malignant neoplasm of prostate; Z79.82 Long term (current) use of aspirin; Z87.01 Personal history of pneumonia (recurrent); Z80.1 Family history of malignant neoplasm of trachea, bronchus and lung; Z72.89 Other problems related to lifestyle; Z82.49 Family history of ischemic heart disease and other diseases of the circulatory system; Z82.3 Family history of stroke
CPT/HCPCS: 36415; 71046; 80048; 80053; 80061; 80076; 83605; 83735; 84145; 84484; 85025; 87040; 87070; 87205; 93005; 93306; 93970; 99283; A9270-GY; J0696; J1644; J3475